=== PATIENT | female | born 1960 | race Caucasian/White ===

== ENCOUNTER 2018-05-13 15:09 | Emergency (ER) | payer MEDICAID, OTHER ==
[~2018-05-13] VITALS: Ht 154.9 cm; Wt 67.2 kg
[2018-05-13] MEDS ORDERED: KETOROLAC 60MG/2ML VIAL IM ONE (19:30)
[2018-05-13 20:18] VITALS: BP 144/99
== END 2018-05-13 23:04 | disposition home or self-care (01) ==
LOC: ER 15:09
DX: M54.89 Other dorsalgia (principal); M54.2 Cervicalgia; R03.0 Elevated blood-pressure reading, without diagnosis of hypertension; X50.0XXA Overexertion from strenuous movement or load, initial encounter; X50.1XXA Overexertion from prolonged static or awkward postures, initial encounter; Y93.89 Activity, other specified; Y92.89 Other specified places as the place of occurrence of the external cause; Y99.0 Civilian activity done for income or pay
CPT/HCPCS: 96372; 99283; J1885; Z7610

== ENCOUNTER 2019-07-25 10:30 | Emergency (ER) | payer MEDICAID, OTHER ==
[~2019-07-25] VITALS: Ht 162.6 cm; Wt 72.0 kg
[2019-07-25] MEDS ORDERED: ONDANSETRON HCL 4MG/2ML INJ IV STA (11:46)
[2019-07-25] MEDS ORDERED: SODIUM CHLORIDE 0.9% 1,000 ML IV ONE (11:46)
[2019-07-25] MEDS ORDERED: MECLIZINE 25MG TABLET PO ONE (12:00)
[2019-07-25 13:10] VITALS: BP 126/48
== END 2019-07-25 13:53 | disposition home or self-care (01) ==
LOC: ER 10:30
DX: R42 Dizziness and giddiness (principal); E78.00 Pure hypercholesterolemia, unspecified
CPT/HCPCS: 96361; 96374; 99283; J2405; J7030; J8597